=== PATIENT | female | born 1980 | race African-American/Black ===

== ENCOUNTER 2019-11-29 12:10 | Emergency (ER) | payer OTHER, SELFPAY ==
[2019-11-29 12:23] VITALS: BP 172/109; PULSE 65; RESP 16; TEMP 36.7; O2SAT 99
--- NOTE | 2019-11-29 12:36 | ED.SKABFB ---
HPI - Skin/Abscess/Foreign Bdy General Chief complaint: Skin/Abscess/Foreign Body Stated complaint: Rash on right arm Time Seen by Provider: 11/29/19 12:30 Source: patient and RN notes reviewed Mode of arrival: ambulatory Limitations: no limitations History of Present Illness HPI narrative: Patient presents today with a 3-day history of pruritic rash to the right arm. Denies pain or drainage. She tried hydrocortisone once without relief. States she believes that this could be due to a glove she needs to wear while at work, irritating her skin. MD complaint: rash Related Data Home Medications Medication Instructions Recorded Confirmed losartan 100 mg PO DAILY 11/29/19 11/29/19 Allergies Allergy/AdvReac Type Severity Reaction Status Date / Time amoxicillin AdvReac Other Verified 11/29/19 12:31 Review of Systems Review of Systems: Narrative: CONSTITUTIONAL: Denies body aches, fever, chills, or sweats. EYES: Denies visual changes, redness, or discharge. ENT: Denies rhinorrhea, congestion, sore throat, or otalgia. CARDIOVASCULAR: Denies chest pain, palpitations, or edema. RESPIRATORY: Denies cough or dyspnea. GASTROINTESTINAL: Denies abdominal pain, nausea, vomiting, or diarrhea. GENITOURINARY: Denies dysuria or hematuria. SKIN: Denies wounds.+ Pruritic rash to right arm MUSCULOSKELETAL: Denies back pain, joint pain, or myalgia. NEUROLOGIC: Denies headache, numbness, tingling, or weakness. PSYCH: Denies depression or anxiety. [facility] Past Medical History Medical History (Updated 11/29/19 @ 12:39 by Brooke Jj, [facility], ) Hypertension Social History Social History Gender identity (if verbalized by the patient): Female Exam Narrative: Exam Narrative: GENERAL: Well-appearing, well-nourished, and in no acute distress. HEAD: Normocephalic, atraumatic. EYES: EOMI. No redness or drainage. Conjunctivae normal. ENT: Mucous membranes pink and moist. NECK: Normal AROM. CHEST: No respiratory distress. EXTREMITIES: Normal range of motion. No edema. SKIN: Warm, dry. Capillary refill normal. Normal skin turgor. Scattered papular rash to the anterior right arm extending from the distal upper arm to the proximal forearm. No erythema, induration, fluctuance. NEURO: No focal deficits. Alert and oriented x3. Gait steady. PSYCH: Normal affect. No signs of depression or anxiety. Course Vital Signs Vital signs: Vital Signs Temperature 98.0 F 11/29/19 12:23 Pulse Rate 65 11/29/19 12:23 Respiratory Rate 16 11/29/19 12:23 Blood Pressure 172/109 H 11/29/19 12:23 Pulse Oximetry 99 11/29/19 12:23 Temperature 98.0 F 11/29/19 12:23 Pulse Rate 65 11/29/19 12:23 Respiratory Rate 16 11/29/19 12:23 Blood Pressure 172/109 H 11/29/19 12:23 Pulse Oximetry 99 11/29/19 12:23 Reviewed. Pt has been instructed to follow up with her PCP regarding her elevated blood pressure today. Patient states she ran out of her hypertension medication a few days ago and will call her PCP today for refill. MDM - Skin/Abscess/Foreign Bdy Differential Diagnosis Differential diagnosis: Likely abscess of skin or subcutaneous tissue, viral exanthem, urticaria, herpes zoster, allergic reaction to drug, cellulitis, eczema, insect bites, impetigo and contact dermatitis Critical Care Time Critical Care Time Critical Care Time: No Discharge Plan Discharge Clinical Impression: Contact dermatitis Qualifiers: Contact dermatitis type: unspecified Contact dermatitis trigger: unspecified trigger Qualified Code(s): L25.9 - Unspecified contact dermatitis, unspecified cause Patient Disposition: Home, Self-Care Condition: Stable Instructions: Contact Dermatitis (DC) Additional Instructions: Please use the triamcinolone as directed. You may take an antihistamine such as Zyrtec, Claritin, Kasia, or Benadryl for itching. Follow-up with your PCP with any further concerns. Your blood pressure was elevated
== END 2019-11-29 12:45 | disposition home or self-care (01) ==
PROVIDERS: Emergency Provider Nurse Practitioner
DX: L25.9 Unspecified contact dermatitis, unspecified cause (principal); I10 Essential (primary) hypertension
CPT/HCPCS: 99203; G0463

== ENCOUNTER 2019-12-14 14:42 | Outpatient (CLI) | payer OTHER, SELFPAY ==
--- NOTE | ~2019-12-14 | XR_ITS ---
EXAMINATION: XR chest 2V DATE: 12/14/2019 15:05 INDICATION: Tobacco use TECHNIQUE: PA and lateral views of the chest are obtained. COMPARISON: None available FINDINGS: The lungs are free of acute opacities. There is no pleural effusion or pneumothorax. The ca rdiomediastinal silhouette is normal. The visualized bones and soft tissues are unremarkable. IMPRESSION: 1. No acute cardiopulmonary abnormality. Reviewed, dictated and finalized at location [facility] [employer]
[2019-12-14 15:40] LABS: Hematocrit 36.1 % (37.0-47.0); Hemoglobin 11.4 g/dL (12.0-15.0); Mean Corpuscular HGB Conc 31.6 g/dl (32-36); Mean Corpuscular Hemoglobin 28.8 pg (26-34); Mean Corpuscular Volume 91.2 fl (80-100); Mean Platelet Volume 9.9 fl (7.4-10.4); Platelet Count Result 443 k/mm3 (150-375); Red Blood Count 3.96 M/mm3 (4.2-5.4); Red Cell Distribution Width 14.8 % (11.5-14.5); White Blood Count 7.9 K/mm3 (4.5-10.0)
[2019-12-14 15:44] LABS: Add Urine Microscopic? YES; Appearance Urine Cloudy (Clear); Bilirubin Urine Negative (Negative); Blood Urine Negative (Negative); Color Urine Yellow (Yellow); Glucose Urine UA Negative (Negative); Ketones Urine Negative (Negative); Leukocyte Esterase Ur Negative LEU/UL (NEGATIVE); Mucus Urine Rare /lpf; Nitrate Urine Negative (Negative); Protein Urine Negative (Negative); RBC Urine 0-2 /hpf (0-2); Specific Grav Ur 1.027 (1.001-1.035); Squamous Epithelial Cell Urine Many /hpf (Few); Urobilinogen Urine Negative mg/dL (<2.0); WBC Urine 0-3 /hpf (0-3)
[2019-12-14 15:48] LABS: Hemoglobin A1C 4.8 % (<5.7)
[2019-12-14 15:54] LABS: Alanine Aminotransferase 13 U/L (4-35); Albumin Level 3.8 g/dL (3.5-5.1); Alkaline Phosphatase 64 U/L (38-126); Anion Gap 11 mmol/L (8-16); Aspartate Amino Transferase 17 U/L (14-36); Bilirubin,Total 0.7 mg/dL (0.2-1.3); Blood Urea Nitrogen 17 mg/dL (7-17); Calcium 8.9 mg/dL (8.4-10.2); Carbon Dioxide 22 mmol/L (22-30); Chloride 107 mmol/L (98-107); Cholesterol 173 mg/dL (0-200); Estimated Glomerular Filt Rate > 60; Glucose 100 mg/dL (65-105); HDL Direct 66 mg/dL; Potassium 4.2 mmol/L (3.4-5.0); Sodium 140 mmol/L (137-145); Triglycerides 118 mg/dL (<150)
[2019-12-14 16:05] LABS: LDL Cholesterol Direct 71 mg/dL
[2019-12-14 16:46] LABS: Creatinine Urine 163.2 mg/dL
[2019-12-14 16:52] LABS: MALB Creatinine Ratio 3.7 mg/g (0-30); Microalbumin Urine Random 6.1 mg/L (0-16.7)
[2019-12-14 17:00] LABS: Free T4 Free Thyroxine 0.86 ng/mL (0.78-2.19)
== END 2019-12-14 14:43 | disposition home or self-care (01) ==
PROVIDERS: PCP Emergency Medicine; Visit Provider Emergency Medicine
DX: I10 Essential (primary) hypertension (principal); Z72.0 Tobacco use
CPT/HCPCS: 36415; 71046; 80053; 80061; 81001; 82043; 83036; 84439; 84443; 85027

== ENCOUNTER 2019-12-22 09:35 | Outpatient (CLI) | payer OTHER, SELFPAY ==
[2019-12-22 10:49] LABS: Iron 25 ug/dL (37-170)
== END 2019-12-22 09:36 | disposition home or self-care (01) ==
PROVIDERS: PCP Emergency Medicine; Visit Provider Emergency Medicine
DX: D64.9 Anemia, unspecified (principal)
CPT/HCPCS: 36415; 83540

== ENCOUNTER 2020-11-30 17:02 | Emergency (ER) | payer OTHER, SELFPAY ==
[2020-11-30 17:06] VITALS: BP 138/98; PULSE 72; RESP 16; TEMP 36.6; O2SAT 99
--- NOTE | 2020-11-30 17:40 | ED.GENADULT ---
HPI - General Adult General Chief complaint: Vaginal Bleeding <Huong Barksdale PA-C - Last Filed: 11/30/20 18:19> Stated complaint: vaginal bleeding x2 weeks, post tubal 18 years <Huong Barksdale PA-C - Last Filed: 11/30/20 18:19> Time Seen by Provider: 11/30/20 17:25 <Huong Barksdale PA-C - Last Filed: 11/30/20 18:19> Source: patient <Huong Barksdale PA-C - Last Filed: 11/30/20 18:19> Mode of arrival: ambulatory <Huong Barksdale PA-C - Last Filed: 11/30/20 18:19> Limitations: no limitations <Huong Barksdale PA-C - Last Filed: 11/30/20 18:19> History of Present Illness HPI narrative: Patient is here for evaluation of intermittent vaginal bleeding and would like to be tested for STDs. She states that she had a tubal ligation 18 years ago and is not . She thinks that the blood may occasionally appear after urinating. She has some itching and some mild discharge. She is concerned for STIs as she was infected sometime ago and does not believe she took the medication correctly. She does not recall which infection she was treated for. <Huong Barksdale PA-C - Last Filed: 11/30/20 18:19> Onset (ago): week(s) <Huong Braksdale PA-C - Last Filed: 11/30/20 18:19> Severity: mild <uHong Barksdale PA-C - Last Filed: 11/30/20 18:19> Relieving factors: none <HAYDE Park Last Filed: 11/30/20 18:19> Exacerbating factors: none <Huong Barksdale PA-C - Last Filed: 11/30/20 18:19> Associated symptoms: denies other symptoms <HAYDE Park Last Filed: 11/30/20 18:19> Related Data Home medications: Home Medications Medication Instructions Recorded Confirmed losartan 100 mg PO DAILY 11/29/19 11/29/19 <Houng Barksdale PA-C - Last Filed: 11/30/20 18:19> Allergies/adverse reactions: Allergies Allergy/AdvReac Type Severity Reaction Status Date / Time amoxicillin AdvReac Other Verified 11/30/20 17:05 <Huong Barksdale PA-C - Last Filed: 11/30/20 18:19> Review of Systems Review of Systems: All systems reviewed & are unremarkable except as noted in HPI and below <Huong Barksdale PA-C - Last Filed: 11/30/20 18:19> [facility] Past Medical History Medical History: Medical History Hypertension <Huong Barksdale PA-C - Last Filed: 11/30/20 18:19> Social History Social History: Social History (Updated 11/30/20 @ 17:45 by Huong Barksdale PA-C) Smoking status: Current every day smoker Alcohol intake: current Substance use: never Gender identity (if verbalized by the patient): Female <Huong Barksdale PA-C - Last Filed: 11/30/20 18:19> Exam Const: General: no acute distress and alert <Huong Barksdale PA-C - Last Filed: 11/30/20 18:19> Orientation/consciousness: patient oriented x3 <Huong Barksdale PA-C - Last Filed: 11/30/20 18:19> Eyes: Pupils: Equal, round and reactive pupils present <Huong Barksdale PA-C - Last Filed: 11/30/20 18:19> Resp: Effort & Inspection: normal respiratory effort <Huong Barksdale PA-C - Last Filed: 11/30/20 18:19> Auscultation: clear to auscultation bilaterally <Huong Barksdale PA-C - Last Filed: 11/30/20 18:19> Cardio: Rate: regular rate <Huong Barksdale PA-C - Last Filed: 11/30/20 18:19> Rhythm: regular rhythm <Huong Barksdale PA-C - Last Filed: 11/30/20 18:19> GI: GI Palp: Yes Soft to palpation <HAYDE Park Last Filed: 11/30/20 18:19> Auscultation: normal bowel sounds <Huong Barksdale PA-C - Last Filed: 11/30/20 18:19> Other: mild suprapubic tenderness <Huong Barksdale PA-C - Last Filed: 11/30/20 18:19> : General: Yes no CVA tenderness <Huong Barksdale PA-C - Last Filed: 11/30/20 18:19> External Female Exam: normal external appearance <HAYDE Park Last Filed: 11/30/20 18:19> Speculum Exam - Vagina: normal appearance of the vagina and vaginal bleeding (m
[2020-11-30 18:39] LABS: Add Urine Microscopic? YES; Amorphous Sediment Urine Few; Appearance Urine Cloudy (Clear); Bacteria Urine Trace /hpf; Bilirubin Urine Negative (Negative); Blood Urine 1+ (Negative); Color Urine Yellow (Yellow); Glucose Urine UA Negative (Negative); Ketones Urine Negative (Negative); Leukocyte Esterase Ur Negative LEU/UL (Negative); Nitrate Urine Negative (Negative); Protein Urine Negative (Negative); RBC Urine 0-2 /hpf (0-2); Specific Grav Ur 1.021 (1.001-1.035); Squamous Epithelial Cell Urine Occasional /hpf (Few); Urobilinogen Urine Negative mg/dL (<2.0); WBC Urine 0-3 /hpf
== END 2020-11-30 18:45 | disposition home or self-care (01) ==
PROVIDERS: Physician Assistant; Emergency Provider General Practice; PCP Emergency Medicine
DX: N93.9 Abnormal uterine and vaginal bleeding, unspecified (principal); Z20.2 Contact with and (suspected) exposure to infections with a predominantly sexual mode of transmission; I10 Essential (primary) hypertension; F17.200 Nicotine dependence, unspecified, uncomplicated
CPT/HCPCS: 81001; 87070; 87491; 87591; 87808; 99284

== ENCOUNTER 2020-12-18 12:58 | Outpatient (CLI) | payer OTHER, SELFPAY ==
--- NOTE | ~2020-12-18 | US_ITS ---
EXAMINATION: US pelvic complete w TV DATE: 12/18/2020 13:39 INDICATION: Abnormal uterine bleeding Comparison:No prior studies for comparison. TECHNIQUE: Multiple transabdominal and endovaginal sonographic images of the pelvis performed. FINDINGS: The uterus measures 8.8 x 4.5 x 5.7 cm. The endometrial complex measures 8 mm. The right ovary measures 1.7 x 0.9 x 1.4 cm and the left ovary measures 1.8 x 1.4 x 1.6 cm. There ar e small follicles in each ovary. Normal doppler signal in both ovaries. There is no free fluid in the pelvis. There are no abnormal masses seen on either side. IMPRESSION: 1. Unremarkable pelvic ultrasound. Reviewed, dictated and finalized at location [facility] [employer]
== END 2020-12-18 12:59 | disposition home or self-care (01) ==
PROVIDERS: PCP Emergency Medicine; Visit Provider Emergency Medicine
DX: N93.9 Abnormal uterine and vaginal bleeding, unspecified (principal)
CPT/HCPCS: 76830; 76856

== ENCOUNTER 2021-05-23 08:39 | Outpatient (CLI) | payer OTHER, SELFPAY ==
[2021-05-23 09:25] LABS: Hematocrit 37.8 % (37.0-47.0); Hemoglobin 11.8 g/dL (12.0-15.0); Mean Corpuscular HGB Conc 31.2 g/dl (32-36); Mean Corpuscular Hemoglobin 29.8 pg (26-34); Mean Corpuscular Volume 95.5 fl (80-100); Mean Platelet Volume 10.7 fl (7.4-10.4); Platelet Count Result 358 k/mm3 (150-375); Red Blood Count 3.96 M/mm3 (4.2-5.4); Red Cell Distribution Width 13.4 % (11.5-14.5); White Blood Count 8.5 K/mm3 (4.5-10.0)
[2021-05-23 09:38] LABS: Alanine Aminotransferase 11 U/L (4-35); Albumin Level 4.1 g/dL (3.5-5.1); Alkaline Phosphatase 68 U/L (38-126); Anion Gap 7 mmol/L (8-16); Aspartate Amino Transferase 18 U/L (14-36); Bilirubin,Total 0.3 mg/dL (0.2-1.3); Blood Urea Nitrogen 19 mg/dL (7-17); Calcium 8.7 mg/dL (8.4-10.2); Carbon Dioxide 22 mmol/L (22-30); Chloride 108 mmol/L (98-107); Cholesterol 163 mg/dL (0-200); Estimated Glomerular Filt Rate > 60; Glucose 81 mg/dL (65-110); HDL Direct 61 mg/dL; Potassium 3.7 mmol/L (3.4-5.0); Sodium 137 mmol/L (137-145); Triglycerides 72 mg/dL (<150)
[2021-05-23 09:49] LABS: LDL Cholesterol Direct 79 mg/dL
[2021-05-23 10:10] LABS: Creatinine Urine 76.1 mg/dL
[2021-05-23 10:17] LABS: Iron 50 ug/dL (37-170)
[2021-05-23 10:18] LABS: MALB Creatinine Ratio < 7.9 mg/g (0-30); Microalbumin Urine Random < 6.0 mg/L (0-16.7)
[2021-05-23 10:21] LABS: Hemoglobin A1C 4.9 % (<5.7)
[2021-05-23 10:32] LABS: Percent Iron Saturation 12 % (20-50)
[2021-05-23 10:35] LABS: Free T4 Free Thyroxine 0.93 ng/mL (0.78-2.19)
[2021-05-23 10:45] LABS: Vitamin D 25 Hydroxy < 12.8 ng/mL
[2021-05-23 18:04] LABS: Add Urine Microscopic? NO; Appearance Urine Clear (Clear); Bilirubin Urine Negative (Negative); Blood Urine Negative (Negative); Color Urine Yellow (Yellow); Glucose Urine UA Negative (Negative); Ketones Urine Negative (Negative); Leukocyte Esterase Ur Negative LEU/UL (NEGATIVE); Nitrate Urine Negative (Negative); Protein Urine Negative (Negative); Urobilinogen Urine 0.2 mg/dL (<2.0); pH Urine 5.5 (5.0-9.0)
== END 2021-05-23 08:40 | disposition home or self-care (01) ==
LOC: ANHLAB 08:43
PROVIDERS: PCP Emergency Medicine; Visit Provider Emergency Medicine
DX: D64.9 Anemia, unspecified (principal); I10 Essential (primary) hypertension
CPT/HCPCS: 36415; 80053; 80061; 81003; 82043; 82306; 83036; 83540; 83550; 84439; 84443; 85027